=== PATIENT | female | born 1950 | race Caucasian/White ===

== ENCOUNTER → 2024-01-14 12:53 | Outpatient (REF) | payer MEDICARE, OTHER, SELFPAY | LOC: WDC 12:53 | PROVIDERS: ATTENDING PHYSICIAN Student in an Organized Health Care Education/Training Program | DX: Z12.31 Encounter for screening mammogram for malignant neoplasm of breast (principal) | CPT/HCPCS: 77063; 77067 ==

== ENCOUNTER → 2025-02-07 11:31 | Outpatient (REF) | payer MEDICARE, OTHER, SELFPAY | LOC: WDC 11:31 | PROVIDERS: ATTENDING PHYSICIAN Student in an Organized Health Care Education/Training Program | DX: Z12.31 Encounter for screening mammogram for malignant neoplasm of breast (principal) | CPT/HCPCS: 77063; 77067 ==